=== PATIENT | male | born 2000 | race Caucasian/White ===

== ENCOUNTER 2022-01-16 13:33 | Emergency (ER) | payer BC ==
[~2022-01-16] VITALS: Ht 188 cm; Wt 77.1 kg
[2022-01-16] MEDS ORDERED: MORPHINE SULFATE 4 MG/1 ML DISP.SYRIN IV ONE (13:45)
[2022-01-16] MEDS ORDERED: ONDANSETRON 4 MG/2 ML VIAL IV ONE (13:45)
[2022-01-16] MEDS ORDERED: ONDANSETRON 4 MG/2 ML VIAL ONE (13:59)
[2022-01-16] MEDS ORDERED: MORPHINE SULFATE 4 MG/1 ML DISP.SYRIN ONE (13:59)
[2022-01-16] MEDS ORDERED: TDAP DIPH,PERTUSS,TET VAC/PF 0.5 ML DISP.SYRIN IM ONE ×2 (15:00→15:10)
--- NOTE | 2022-01-16 15:05 | NUR ---
Patient discharged to home in stable condition. Written and verbal after care instructions given. Patient verbalizes understanding of instructions. Stressed follow up or return to ER for worsening s/s.
== END 2022-01-16 15:05 | disposition home or self-care (01) ==
LOC: ER 13:42
DX: M25.512 Pain in left shoulder (principal); Z88.0 Allergy status to penicillin; Z88.1 Allergy status to other antibiotic agents
CPT/HCPCS: 73030; 90471; 90715; 96374; 96375; 99284; J2270; J2405; A4663